=== PATIENT | male | born 1955 | race Caucasian/White ===

== ENCOUNTER 2019-01-21 11:54 | Outpatient (REF) | payer SELFPAY ==
[2019-01-21 22:07] LABS: Calculated LDL 119 mg/dL; Cholesterol 213 mg/dL (50-200); Glucose 115 mg/dL (70-100); HDL Cholesterol 77 mg/dL (40-60); Triglyceride 89 mg/dL (30-150)
== END 2019-01-21 12:14 ==
LOC: NCHCN 11:54
PROVIDERS: PCP Nurse Practitioner Family; Visit Provider Nurse Practitioner Family
DX: Z00.00 Encounter for general adult medical examination without abnormal findings (principal); Z13.1 Encounter for screening for diabetes mellitus; Z13.220 Encounter for screening for lipoid disorders
CPT/HCPCS: 80061; 82947

== ENCOUNTER 2021-03-22 14:13 | Outpatient (REF) | payer BC, SELFPAY ==
[2021-03-22 16:22] LABS: BUN 31 mg/dL (7-18); CREATININE 1.4 mg/dL (0.70-1.30); Calcium 8.9 mg/dL (8.5-10.1); Calculated LDL 143 mg/dL (<100); Chloride 105 mmol/L (98-107); Cholesterol 234 mg/dL (<200); Estimated GFR 51.18 (mL/min/1.73m2); Glucose 126 mg/dL (74-106); HDL Cholesterol 80 mg/dL (40-60); Potassium 4.4 mmol/L (3.5-5.1); Sodium 143 mmol/L (136-145); Triglyceride 55 mg/dL (<150)
[2021-03-24 12:01] LABS: HIV-1/2 Ag & Ab Screen Negative (Negative)
[2021-03-24 12:37] LABS: Hepatitis C Ab w Rflx HCV PCR Negative (Negative)
== END 2021-03-22 14:14 | disposition home or self-care (01) ==
LOC: NCHCN 14:13
PROVIDERS: PCP Nurse Practitioner Family; Visit Provider Nurse Practitioner Family
DX: Z00.00 Encounter for general adult medical examination without abnormal findings (principal); Z11.4 Encounter for screening for human immunodeficiency virus [HIV]; Z11.59 Encounter for screening for other viral diseases; Z13.220 Encounter for screening for lipoid disorders
CPT/HCPCS: 80048; 80061; 86803; 87389

== ENCOUNTER 2021-04-26 11:31 | Outpatient (REF) | payer BC, SELFPAY ==
[2021-04-26 16:20] LABS: Anion Gap 7.6 mmol/L (3-11); BUN 28 mg/dL (7-18); CO2 28.4 mmol/L (21.0-32.0); CREATININE 1.2 mg/dL (0.70-1.30); Calcium 8.9 mg/dL (8.5-10.1); Chloride 105 mmol/L (98-107); Glucose 83 mg/dL (74-106); Potassium 4.1 mmol/L (3.5-5.1); Sodium 141 mmol/L (136-145)
== END 2021-04-26 11:32 | disposition home or self-care (01) ==
LOC: NCHCN 11:31
PROVIDERS: PCP Nurse Practitioner Family; Visit Provider Nurse Practitioner Family
DX: R03.0 Elevated blood-pressure reading, without diagnosis of hypertension (principal); R94.4 Abnormal results of kidney function studies
CPT/HCPCS: 80048

== ENCOUNTER 2021-04-29 09:26 | Outpatient (REF) | payer BC, SELFPAY ==
[2021-04-29 15:54] LABS: COMMENT (LAB VIEW ONLY) 225.23 mg/dL
[2021-04-29 15:55] LABS: Microalb ug/mg Crea 1.2 ug/mg Cr
== END 2021-04-29 09:27 | disposition home or self-care (01) ==
LOC: NCHCN 09:26
PROVIDERS: PCP Nurse Practitioner Family; Visit Provider Nurse Practitioner Family
DX: R94.4 Abnormal results of kidney function studies (principal)
CPT/HCPCS: 82043; 82570

== ENCOUNTER 2025-02-24 09:37 | Outpatient (REF) | payer OTHER, SELFPAY ==
[2025-02-24 15:28] LABS: Cholesterol 215 mg/dL (<200); HDL Cholesterol 80 mg/dL (>40)
[2025-02-24 22:49] LABS: PSA, Screening 1.3 ng/mL (<=4.5)
== END 2025-02-24 09:38 | disposition home or self-care (01) ==
LOC: NCHCN 09:37
PROVIDERS: PCP Nurse Practitioner Family; Visit Provider Family Medicine
DX: Z12.5 Encounter for screening for malignant neoplasm of prostate (principal); Z13.220 Encounter for screening for lipoid disorders
CPT/HCPCS: 80061; 84153